=== PATIENT | male | born 1960 | race Caucasian/White ===

== ENCOUNTER 2017-12-26 19:56 | Inpatient (IN) | payer OTHER ==
[~2017-12-26] VITALS: Ht 177.8 cm; Wt 86.2 kg
[2017-12-26 20:02] VITALS: BP 143/84
[2017-12-26 20:29] LABS: ABSOLUTE EOSINOPHILS 0.3 thou/uL (0.0-0.7); ABSOLUTE LYMPHOCYTES 2.8 thou/uL (0.8-5.3); ABSOLUTE NEUTROPHILS 8.8 thou/uL (1.6-8.1); BASOPHILS 0.4 %; EOSINOPHILS 2.5 %; HEMATOCRIT 44.1 % (42.0-52.0); HEMOGLOBIN 15.1 gm/dL (14.0-18.0); LYMPHOCYTES 21.5 %; MCH 31.7 pg (26.0-34.0); MCHC 34.3 g/dL (28.0-37.0); MCV 92.4 fL (80.0-100.0); MONOCYTES 7.5 %; MPV 7.8 fl. (7.2-11.1); NUCLEATED RBCS 0 /100WBC; PLATELET COUNT* 319 thou/uL (150-400); POLYS 68.1 %; RBC 4.77 mil/uL (4.50-6.00); RDW-CV 12.7 % (10.5-14.5); WBC 12.9 thou/uL (4.0-11.0)
[2017-12-26 20:36] LABS: CALCIUM 8.9 mg/dL (8.5-10.1); CREATININE 0.9 mg/dL (0.6-1.3); POTASSIUM 3.8 mmol/L (3.5-5.1)
[2017-12-26 20:38] LABS: APTT 26.3 Seconds (25.0-31.3); INR 1.1; PROTIME 10.7 Seconds (9.20-11.50)
[2017-12-26 20:41] LABS: ALBUMIN 3.7 g/dL (3.4-5.0); TOTAL BILIRUBIN 0.7 mg/dL (<0.1-1.0); TOTAL PROTEIN 7.7 g/dL (6.4-8.2)
[2017-12-26 20:48] LABS: URINE BILIRUBIN NEGATIVE (Negative); URINE BLOOD NEGATIVE (Negative); URINE CLARITY CLEAR; URINE COLOR YELLOW; URINE GLUCOSE-RANDOM NEGATIVE (Negative); URINE KETONES NEGATIVE (Negative); URINE LEUKOCYTES NEGATIVE (Negative); URINE NITRITE NEGATIVE (Negative); URINE PROTEIN NEGATIVE (Negative); URINE SPECIFIC GRAVITY <= 1.005 (1.005-1.030); URINE UROBILINOGEN 0.2 E.U./dl (0.2-1.0)
[2017-12-26 22:42] VITALS: BP 143/84
[2017-12-26 23:05] VITALS: BP 126/72
[2017-12-27 09:52] LABS: ABSOLUTE BASOPHILS 0.1 thou/uL (0.0-0.2); ABSOLUTE EOSINOPHILS 0.2 thou/uL (0.0-0.7); ABSOLUTE LYMPHOCYTES 1.7 thou/uL (0.8-5.3); ABSOLUTE MONOCYTES 0.7 thou/uL (0.0-1.2); ABSOLUTE NEUTROPHILS 8.1 thou/uL (1.6-8.1); BASOPHILS 0.7 %; EOSINOPHILS 1.6 %; HEMATOCRIT 42.8 % (42.0-52.0); HEMOGLOBIN 14.7 gm/dL (14.0-18.0); LYMPHOCYTES 15.7 %; MCHC 34.5 g/dL (28.0-37.0); MCV 92.6 fL (80.0-100.0); MONOCYTES 6.7 %; MPV 8.2 fl. (7.2-11.1); NUCLEATED RBCS 0 /100WBC; PLATELET COUNT* 279 thou/uL (150-400); POLYS 75.3 %; RBC 4.61 mil/uL (4.50-6.00); RDW-CV 12.9 % (10.5-14.5); WBC 10.8 thou/uL (4.0-11.0)
[2017-12-27 09:59] LABS: CALCIUM 8.5 mg/dL (8.5-10.1); CREATININE 0.8 mg/dL (0.6-1.3); MAGNESIUM 1.9 mg/dL (1.8-2.4); POTASSIUM 3.6 mmol/L (3.5-5.1)
[2017-12-27 17:02] VITALS: BP 110/63
[2017-12-27 19:50] VITALS: BP 127/76
[2017-12-28 04:17] LABS: HEMATOCRIT 40.2 % (42.0-52.0); HEMOGLOBIN 13.7 gm/dL (14.0-18.0); MCH 31.6 pg (26.0-34.0); MPV 8.8 fl. (7.2-11.1); RBC 4.32 mil/uL (4.50-6.00); RDW-CV 12.7 % (10.5-14.5); WBC 11.9 thou/uL (4.0-11.0)
[2017-12-28 04:39] LABS: CALCIUM 8.4 mg/dL (8.5-10.1); CREATININE 0.8 mg/dL (0.6-1.3); MAGNESIUM 1.9 mg/dL (1.8-2.4); POTASSIUM 3.8 mmol/L (3.5-5.1)
[2017-12-28 08:00] VITALS: BP 121/74
[2017-12-28 16:37] VITALS: BP 129/76
[2017-12-28 20:30] VITALS: BP 135/82
[2017-12-29 04:00] VITALS: BP 124/74
[2017-12-29 08:20] VITALS: BP 136/75
[2017-12-29 15:51] VITALS: BP 122/82
[2017-12-29 20:00] VITALS: BP 137/81
[2017-12-30] MEDS ORDERED: CLEOCIN HCL150 MG PO (07:54)
[2017-12-30] MEDS ORDERED: PROBIOTIC1 EAC1 PO (07:54)
[2017-12-30 09:06] VITALS: BP 126/55
== END 2017-12-30 09:42 | disposition home or self-care (01) | DRG 603 ==
LOC: M.ERS 19:56 → M.3W 22:02 → M.TBA-ER 22:02 → M.3W 22:51
PROVIDERS: Internal Medicine; Physician Assistant; ADMIT Internal Medicine
DX: L03.314 Cellulitis of groin (principal); Q23.3 Congenital mitral insufficiency; M25.50 Pain in unspecified joint; E87.6 Hypokalemia; Z79.899 Other long term (current) drug therapy